=== PATIENT | male | born 1975 | race Caucasian/White ===

== ENCOUNTER 2024-02-18 15:31 | Inpatient (IN) | payer OTHER, SELFPAY ==
[2024-02-18 11:05] VITALS: BP 127/75
--- NOTE | 2024-02-18 11:45 | ED.GENMED ---
History of Present Illness
<Holly Ivy PA-C - Last Filed: 02/18/24 23:29>
General
Chief Complaint: Skin Problem
Source: patient
Exam Limitations: none
Time Seen by Provider: 02/18/24 11:28
Nursing documentation reviewed up to this point in time: agreed with
Travel History
Have you had any contact with someone who has COVID-19?: No
Do you have any symptoms of coronavirus? Fever > 100 degrees, chills, cough, shortness of breath, sore throat, loss of taste or smell, muscle aches, or headache?: No
History of Present Illness
History of Present Illness:
48-year-old male presents to the emergency department for evaluation of worsening redness and swelling of right forearm. Patient states that he was hiking this past weekend on Friday when he tripped and fell striking his right forearm on a rock.
This did occur in a fresh water stream. Patient did walk back to the car where he was able to clean laceration with hydrogen peroxide and closed wound with Band-Aid. When he woke up Friday morning he reports that his right arm was extremely
swollen, red, and warm. He reports significant pain in right arm extending from right wrist to just above right elbow. He also has noticed pus drainage from open wound.
He did speak with his primary care physician on the phone yesterday who prescribed a course of Keflex. He has only had 3 doses but given severity of symptoms came to emergency department for further evaluation.
Patient reports general fatigue but has not been sleeping well due to discomfort. Patient denies any true fever or chills. Patient denies any nausea, vomiting.
Patient unsure of last tetanus booster.
Review of Systems
<Holly Ivy PA-C - Last Filed: 02/18/24 23:29>
Review of Systems
Allergies reviewed?: Yes
All Other Systems: ROS reviewed and negative except as documented in HPI and ROS
Phy Exam
<Holly Ivy PA-C - Last Filed: 02/18/24 23:29>
Physical Exam
Physical Exam:
Vitals: Patient's vital signs are stable. Afebrile
General: Patient is well appearing, no acute distress
Skin: Significant redness and warmth extending from right wrist to just above right elbow
Head: Normocephalic, atraumatic
Eyes: Sclera nonicteric. EOMs intact. No nystagmus.
Throat: Protecting airway
Neck: Normal ROM, no cervical spine tenderness, no meningismus
Cardiac: Regular rate and rhythm, no murmurs.
Pulm: Normal respiratory effort, no wheezes, rales, rhonchi heard on exam.
Abdomen: Abdomen soft. No abdominal tenderness.
Extremities: Significant erythema, edema and warmth of right upper extremity extending from just above right elbow down to right wrist. Wound noted on right dorsal forearm draining yellow discharge with surrounding induration. No obvious red
streaking. No crepitus noted. No pain with right wrist or elbow range of motion. Good distal pulses with brisk capillary refill of right upper extremity, sensation fully intact of RUE.
Neuro: AAOx3. CN II-XII intact. No focal neurologic deficits.
Psychiatric: Normal affect.
Course
<Holly Ivy PA-C - Last Filed: 02/18/24 23:29>
Orders/Labs/Results
Orders:
Orders
02/18/24 11:43
Ibuprofen [Motrin] 400 mg PO NOW STA
Tetanus/Diphth/Acelpertussis [Adacel] 0.5 ml IM .ONCE ONE
02/18/24 12:12
Piperacillin/Tazo 3.375 Gram [Zosyn] 3.375 gram in 50 ml IV NOW
02/18/24 12:15
Upper Ext Right w Contrast CT [CT Upper Ext W/iv Cont Rt] Urgent
Comment:
Reason For Exam: right forearm cellulitis
02/18/24 12:16
Basic Metabolic Panel Urgent
Complete Blood Count/With Diff Urgent
Lactate Level [Lactic Acid] Urgent
Blood Culture Q30M
PAWAN Source: Blood/Venous
Specimen Description:
02/18/24 12:29
Blood Culture Q30M
PAWAN Source: Blood/Venous
Specimen Description:
Wound Culture [Wound/Abscess/Other Culture] Urgent
PAWAN Source: Arm
Specimen Description: Right
Date Specimen was Collected: 02/18/24
Time Specimen was Collected: 12:17
02/18/24 14:10
Vancomycin [Vancocin] 1,500 mg 0.9% Sodium Chloride [Nss] 20 ml 0.9% Sodium Chloride 250 ml [Nss] 250 ml IV NOW
02/18/24 15:24
Admit/Transfer Patient As Directed
Co-Sign Provider:
Level of Care: Inpatient admission
Assign to:: Medical/Surgical
Physician / Group: Hospitalist
Diagnosis: Cellulitis
Reason for Hospitalization: .
Expected length of stay greater than two midnights?: Yes
ELOS- Estimated Length of Stay in days: 3
I certify the patient meets the requirements for IP care: Yes
02/18/24 16:56
DX Deep Vein Thrombosis Video Routine
02/18/24 20:00
Heparin 5,000 units SC Q12
02/18/24 22:00
HydrOXYZINE [Atarax] 50 mg PO HS
Zolpidem Tartrate [Ambien] 10 mg PO HS
02/19/24 08:00
Amlodipine [Norvasc] 10 mg PO DAILY
Aspirin Low Dose EC [Aspir Low (Enteric Coated)] 81 mg PO DAILY
Metoprolol Xl [Toprol Xl] 50 mg PO DAILY
Rosuvastatin Calcium [Crestor] 40 mg PO DAILY
Abnormal Lab Results
02/18/24
12:16
WBC 12.8 H 10^3/uL
(4.8-10.8)
RBC 4.47 L 10^6/uL
(4.70-6.10)
MCV 95.5 H fL
(80.0-94.0)
MCH 32.9 H pg
(27.0-31.0)
Abs Immat Gran (auto) 0.1 H 10^3/uL
(0-0.05)
Absolute Neuts (auto) 10.0 H 10^3/uL
(1.4-6.5)
Absolute Monos (auto) 1.2 H 10^3/uL
(0.1-0.6)
Neutrophils % 78.4 H %
(42.2-75.2)
Lymphocytes % 10.1 L %
(20.5-51.1)
Monocytes % 9.4 H %
(1.7-9.3)
Glucose 127 H mg/dl
(70-99)
02/18/24 12:16
02/18/24 12:16
Vital Signs
Initial and Last Documented VS:
Initial Vital Signs
Temp Pulse Resp BP Pulse Ox
97.8 F 94 20 127/75 99
02/18/24 11:05 02/18/24 11:05 02/18/24 11:05 02/18/24 11:05 02/18/24 11:05
Last Documented Vital Signs
Temp Pulse Resp BP Pulse Ox
98.3 F 75 18 123/85 97
02/18/24 16:38 02/18/24 16:38 02/18/24 16:38 02/18/24 16:38 02/18/24 16:38
Terelt;Rodolfo Singh DO - Last Filed: 02/18/24 14:32>
Orders/Labs/Results
Orders:
Orders
02/18/24 11:43
Ibuprofen [Motrin] 400 mg PO NOW STA
Tetanus/Diphth/Acelpertussis [Adacel] 0.5 ml IM .ONCE ONE
02/18/24 12:12
Piperacillin/Tazo 3.375 Gram [Zosyn] 3.375 gram in 50 ml IV NOW
02/18/24 12:15
Upper Ext Right w Contrast CT [CT Upper Ext W/iv Cont Rt] Urgent
Comment:
Reason For Exam: right forearm cellulitis
02/18/24 12:16
Basic Metabolic Panel Urgent
Complete Blood Count/With Diff Urgent
Lactate Level [Lactic Acid] Urgent
Blood Culture Q30M
PAWAN Source: Blood/Venous
Specimen Description:
02/18/24 12:29
Blood Culture Q30M
PAWAN Source: Blood/Venous
Specimen Description:
Wound Culture [Wound/Abscess/Other Culture] Urgent
PAWAN Source: Arm
Specimen Description: Right
Date Specimen was Collected: 02/18/24
Time Specimen was Collected: 12:17
02/18/24 14:10
Vancomycin [Vancocin] 1,500 mg 0.9% Sodium Chloride [Nss] 20 ml 0.9% Sodium Chloride 250 ml [Nss] 250 ml IV NOW
02/18/24 15:24
Admit/Transfer Patient As Directed
Co-Sign Provider:
Level of Care: Inpatient admission
Assign to:: Medical/Surgical
Physician / Group: Hospitalist
Diagnosis: Cellulitis
Reason for Hospitalization: .
Expected length of stay greater than two midnights?: Yes
ELOS- Estimated Length of Stay in days: 3
I certify the patient meets the requirements for IP care: Yes
02/18/24 16:56
DX Deep Vein Thrombosis Video Routine
02/18/24 20:00
Heparin 5,000 units SC Q12
02/18/24 22:00
HydrOXYZINE [Atarax] 50 mg PO HS
Zolpidem Tartrate [Ambien] 10 mg PO HS
02/19/24 08:00
Amlodipine [Norvasc] 10 mg PO DAILY
Aspirin Low Dose EC [Aspir Low (Enteric Coated)] 81 mg PO DAILY
Metoprolol Xl [Toprol Xl] 50 mg PO DAILY
Rosuvastatin Calcium [Crestor] 40 mg PO DAILY
Abnormal Lab Results
02/18/24
12:16
WBC 12.8 H 10^3/uL
(4.8-10.8)
RBC 4.47 L 10^6/uL
(4.70-6.10)
MCV 95.5 H fL
(80.0-94.0)
MCH 32.9 H pg
(27.0-31.0)
Abs Immat Gran (auto) 0.1 H 10^3/uL
(0-0.05)
Absolute Neuts (auto) 10.0 H 10^3/uL
(1.4-6.5)
Absolute Monos (auto) 1.2 H 10^3/uL
(0.1-0.6)
Neutrophils % 78.4 H %
(42.2-75.2)
Lymphocytes % 10.1 L %
(20.5-51.1)
Monocytes % 9.4 H %
(1.7-9.3)
Glucose 127 H mg/dl
(70-99)
02/18/24 12:16
02/18/24 12:16
Vital Signs
Initial and Last Documented VS:
Initial Vital Signs
Temp Pulse Resp BP Pulse Ox
97.8 F 94 20 127/75 99
02/18/24 11:05 02/18/24 11:05 02/18/24 11:05 02/18/24 11:05 02/18/24 11:05
Last Documented Vital Signs
Temp Pulse Resp BP Pulse Ox
98.3 F 75 18 123/85 97
02/18/24 16:38 02/18/24 16:38 02/18/24 16:38 02/18/24 16:38 02/18/24 16:38
<Holly Ivy PA-C - Last Filed: 02/18/24 23:29>
MDM/Problems Addressed
Differential Diagnosis Includes:
Not limited to: Cellulitis, abscess, necrotizing fasciitis, septic arthritis, tenosynovitis
MDM/Problems Addressed:
48 year old male with hx as documented presenting for evaluation of suspected cellulitis failing outpatient management. Started on keflex yesterday by PCP with no improvement. No fever or chills. Vitals stable. Exam as above. Cellulitis of right
forearm with erythema extending from elbow to near wrist. There is a wound on proximal dorsal forearm draining yellow pus with surrounding induration. No crepitus. Given history of laceration - high concern for freshwater infection. Will check labs,
lactic acid. Blood cultures and wound cultures sent. No crepitus noted but will check CT upper extremity. Admit to hospital for IV abx. Started vanc / zosyn. Discussed with hospitalist.
CT shows findings consistent with cellulitis of right upper extremity with few small metallic foreign bodies noted. Did discuss with general surgeon to make aware. They will consult but do not anticipate surgical debridement given location and size
of foreign bodies.
Chronic conditions affecting care:
N/A
Acute Exacerbation and/or Progression of Chronic Illness:
N/A
<Holly Ivy PA-C - Last Filed: 02/18/24 23:29>
*Radiology
Radiology exam reviewed: preliminary read by ED provider and radiology read reviewed
*Pulse Oximetry
Patient hypoxic: no
*EKG
Interpreted by ED Provider?: NA
*Livestock Yard Attendant Interpretation
Rate: Livestock Yard Attendant- N/A
*Critical Care Note
Total Time (30-74mins, 75-104mins- exclusive of procedures): Not Applicable
<Holly Ivy PA-C - Last Filed: 02/18/24 23:29>
Patient Management
Discussion with other providers: Hospitalist and Personnel Security Specialist (Dr. Pantoja - General surgery)
ED Attending Note
<Holly Ivy PA-C - Last Filed: 02/18/24 23:29>
-
Portions of this chart may have been created with voice recognition software.� Occasional wrong word or��sound alike� substitutions may have occurred due to the inherent limitations of voice recognition software.
<Rodolfo Singh DO - Last Filed: 02/18/24 14:32>
ED Attending Note
Patient seen and examined by attending physician: Yes
I performed the substantive portion of visit, reviewed & personally made and approve the management plan that is documented in note by myself or RISHABH.: Yes
ED Attending Note:
48-year-old male presents with right arm swelling and redness. Patient fell on a rock on Friday in fresh water. Family doctor started him on Keflex. Patient arrives with increased swelling and redness. Exam: Markedly edematous and red right
upper extremity with extension redness past where he marked himself. There is redness proximal toward the armpit but no obvious linear streaking. No crepitus palpated but it is boggy near the elbow. There is a wound noted to the posterior
proximal forearm. He has normal distal cap refill. Assessment and plan: Concern for freshwater infection including necrotizing fasciitis. No crepitus but check CT. IV antibiotics with Vanco and Zosyn.
Discharge Plan
Departure
Patient Disposition: Admit
Date of Disposition: 02/18/24
Time of Disposition: 14:19
Presentation/result/management discussed w/ accepting MD/DO: Hospitalist
Discharge Problem:
Cellulitis of right arm
Interventions
Interventions:
*Risk Screen - Suicide Last Done: 02/18/24 11:43
*General Assessment Last Done: 02/18/24 11:43
*Neglect/Abuse Screening Last Done: 02/18/24 11:43
ED- Fall Risk Assessment Last Done: 02/18/24 11:40
*ED COVID-19 Vaccine History Last Done: 02/18/24 11:05
*Nursing Disposition Last Done: 02/18/24 16:43
ED-Skin Assessment Last Done: 02/18/24 11:38
Discharge Date and Time
Discharge Date/Time: 02/18/24 16:44
[2024-02-18] MEDS: ADACEL 0.5 ML IM (12:03)
[2024-02-18] MEDS: MOTRIN 400 MG PO (12:04)
[2024-02-18 12:26] LABS: % Basophils 0.4 % (0-2); % Eosinophils 1.3 % (0-6); % Immature Granulocytes 0.4 % (0-0.5); % Lymphocytes 10.1 % (20.5-51.1); % Monocytes 9.4 % (1.7-9.3); % Neutrophils 78.4 % (42.2-75.2); Absolute Basophils 0.1 10^3/uL (0-0.2); Absolute Eosinophils 0.2 10^3/uL (0-0.7); Absolute Immature Granulocytes 0.1 10^3/uL (0-0.05); Absolute Lymphocytes 1.3 10^3/uL (1.2-3.4); Absolute Monocytes 1.2 10^3/uL (0.1-0.6); Hematocrit 42.7 % (39.0-52.0); Hemoglobin 14.7 g/dL (13.0-18.0); Mean Corp Hgb Conc. 34.4 g/dL (33.0-37.0); Mean Corpuscular Hgb 32.9 pg (27.0-31.0); Mean Corpuscular Volume 95.5 fL (80.0-94.0); Mean Platelet Volume 9.7 fL (7.4-10.4); Nucleated Red Blood Cells % 0 % (-); Platelet Count 194 10^3/uL (130-400); Red Blood Cell Count 4.47 10^6/uL (4.70-6.10); Red Cell Dist. Width 12.4 % (11.5-14.5); White Blood Cell Count 12.8 10^3/uL (4.8-10.8)
[2024-02-18] MEDS: ZOSYN 50 IV (12:29)
[2024-02-18 13:23] LABS: Blood Urea Nitrogen 15 mg/dl (9-20); Calcium 9.8 mg/dl (8.4-10.2); Carbon Dioxide 24 mmol/L (22-30); Chloride 101 mmol/L (98-107); Estimated Creatinine Clearance 92 ml/min; Glucose 127 mg/dl (70-99); Sodium 138 mmol/L (135-145); eGFR > 60.00
[2024-02-18] MEDS: VANCOCIN 300 MG IV (14:34)
[2024-02-18] MEDS: VANCOCIN 300 ML IV (14:34)
[2024-02-18 15:05] VITALS: BP 118/71
--- NOTE | 2024-02-18 15:24 | HPS.HSE ---
Family Physician
-
Family Physician: John Souza
Chief Complaint
-
Right arm pain and swelling
History of Present Illness
48 years old male came from home. Patient went hiking with his son's on Wednesday 02/14 when he fell and lacerated his right arm. He cleaned the wound. next day he is felt his arm was swollen red and warm. He called his a primary care physician and
was given prescription of oral cephalexin. He started taking it but felt his arm was not improving and started draining yellowish discharge. He did not have fever or chills. He had leukocytosis on admission. Scan of the right upper extremity is
consistent with cellulitis.
Medical History
Past Medical History
Past Medical History: Reports Other (Hypertension, hyperlipidemia)
Past Surgical History: Reports Other (No recent major surgery)
Social History
Tobacco: Non-smoker
Alcohol: Occasional
Drug: None
Personal:
Living: With Family
Employment: Employed
Family History
Family History: Not pertinent
Allergies / Home Medications
Allergies reflects when Allergies were last updated in [facility].
Home Medications with original date entered in [facility]
Allergy/Medication List:
Allergies
Allergy/AdvReac Type Severity Reaction Status Date / Time
No Known Allergies Allergy Unverified 02/18/24 11:06
Home Medications
ibuprofen 200 mg tablet 600 mg PO DAILYPRN PRN mild pain 12/07/14
Super Beets 2 tab PO QPM 02/18/24
amlodipine 10 mg tablet 10 mg PO DAILY 02/18/24
aspirin 81 mg tablet,delayed release (Nitesh Low Dose Aspirin) 81 mg PO DAILY 02/18/24
cephalexin 500 mg capsule 500 mg PO QID 02/18/24
coenzyme Q10 100 mg capsule (CoQ-10) 200 mg PO DAILY 02/18/24
dupilumab 300 mg/2 mL subcutaneous pen injector ([employer]) 300 mg SC Q2W 02/18/24
ezetimibe 10 mg tablet 10 mg PO DAILY 02/18/24
flaxseed oil 1,000 mg capsule 1,000 mg PO DAILY@1200 02/18/24
garlic 2,000 mg capsule 2,000 mg PO DAILY@1200 02/18/24
hydroxyzine HCl 50 mg tablet 50 mg PO HS 02/18/24
inulin 2 gram chewable tablet (Fiber Gummies) 4 g PO QPM 02/18/24
lisinopril 5 mg tablet 5 mg PO DAILY 02/18/24
metoprolol succinate 50 mg tablet,extended release 24 hr 50 mg PO DAILY 02/18/24
omega 4-ouf-bpe-fish oil 1,200 mg (144 mg-216 mg) capsule (Fish Oil) 1 cap PO BID 02/18/24
omeprazole magnesium 20 mg tablet,delayed release (Prilosec OTC) 20 mg PO DAILY@1200 02/18/24
rosuvastatin 40 mg tablet 40 mg PO DAILY 02/18/24
zolpidem 10 mg tablet 10 mg PO HS 02/18/24
Review of Systems
-
History Source: Patient
A 12 point ROS was completed and negative except as noted: Yes
Constitutional: Denies Fever or Chills
EENT: Denies Sore Throat
Respiratory: Denies Cough
Cardiac: Denies Chest Pain
Abdomen/GI: Denies Abdominal Pain
: Denies Dysuria
Musculoskeletal: Reports Joint Pain (Pain with the swelling and tenderness of right forearm)
Skin: Denies Itching
Neurological: Denies Dizzy or Numbness
Endocrine: Denies Temp Intolerance
Hematologic/Lymphatic: Denies Bruising
Psych: Denies Panic Disorder
Physical Exam
Vital Signs
Vital Signs
Temp Pulse Resp BP Pulse Ox
97.8 F 76 18 118/71 100
02/18/24 11:05 02/18/24 15:05 02/18/24 15:05 02/18/24 15:05 02/18/24 15:05
Physical Exam
General: Well Nourished, No Apparent Distress and Comfortable
HEENT: Moist mucous membranes and Atraumatic
Respiratory: Clear
Cardiac: S1/S2
GI: Non Tender
Genito-urinary: No costovertebral tender
Musculoskeletal: Edema, Right Upper Extremity (With erythema and swelling/tenderness in right forearm)
Skin: Warm; No Jaundice
Neuro: AO x 3; No Slurred Speech or Tremors
Psych: Calm and Intact Judgment/Insight
Laboratory Results
-
02/18/24 12:16
02/18/24 12:16
Laboratory Results
Lactic Acid 1.0 mmol/L (0.7-2.0) 02/18/24 12:16
Total Bilirubin Cancelled 02/18/24 12:16
AST Cancelled 02/18/24 12:16
ALT Cancelled 02/18/24 12:16
Alkaline Phosphatase Cancelled 02/18/24 12:16
Impression/Plan
-
48 years old male presented with cellulitis of right forearm after laceration
# Cellulitis of right forearm
The forearm is swollen, tender, red, with draining wound with yellowish discharge
Admit the patient to the house
He failed outpatient treatment with oral antibiotic
The patient on IV antibiotic
Blood culture X2
Tetanus booster
Continue with wound care. Elevate the arm. Keep n.p.o. until surgery evaluates
Appreciate surgery input
# Primary hypertension
No headache, no chest pain. Continue home medications and monitor
#Hyperlipidemia
#Foreign bodies in right forearm, measuring up to 5 mm in diameter.
Small in size. Could be related to his work in [employer]
# DVT prophylaxis
Total time spent to see the patient, examine the patient on the floor, review data and lab results, discuss treatment plan with patient, ER doctor, surgery, nursing staff around 75 minutes
[2024-02-18 16:38] VITALS: BP 123/85; BMI 30.5
--- NOTE | 2024-02-18 17:40 | PTCARENOTE ---
Received Pt from ED. Walked from stretcher to bed. AAOx3 able to make needs known. Oriented to room and use of call chance. VSS. Call chance within reach.
--- NOTE | 2024-02-18 19:12 | CON.GS ---
Consultation
-
Requesting Provider: Hugo
Performing Provider: Kit
Reason for Consultation: RUE soft tissue infection
Medical History
-
Chief Complaint: RUE redness/swelling/pain
History of Present Illness:
48M fell while hiking 02/14 and lacerated right forearm. [place]. Since then it became increasingly tender, red and swollen. He denies f/c/n/v. His PCP rx'ed keflex, this was not effective. He developed purulent
drainage from the small wound.
Past Medical History
Past Medical History: HTN and Hypercholesterolemia
Past Surgical History: Reviewed & Noncontributory
Social History
Tobacco: Non-Smoker
Alcohol: Occasional
Drug: None
Personal:
Living: With Family
Employment: Employed
Family History
Family History: Reviewed & Noncontributory
Allergies / Home Medications
Allergy/AdvReac Type Severity Reaction Status Date / Time
No Known Allergies Allergy Unverified 02/18/24 11:06
�Medication �Instructions �Recorded �Confirmed �Type
ibuprofen 200 mg tablet 600 mg PO DAILYPRN PRN mild pain 12/07/14 02/18/24 History
Super Beets 2 tab PO QPM 02/18/24 02/18/24 History
amlodipine 10 mg tablet 10 mg PO DAILY 02/18/24 02/18/24 History
aspirin 81 mg tablet,delayed 81 mg PO DAILY 02/18/24 02/18/24 History
release (Nitesh Low Dose Aspirin)
cephalexin 500 mg capsule 500 mg PO QID 02/18/24 02/18/24 History
coenzyme Q10 100 mg capsule 200 mg PO DAILY 02/18/24 02/18/24 History
(CoQ-10)
dupilumab 300 mg/2 mL subcutaneous 300 mg SC Q2W 02/18/24 02/18/24 History
pen injector (Dupixent)
ezetimibe 10 mg tablet 10 mg PO DAILY 02/18/24 02/18/24 History
flaxseed oil 1,000 mg capsule 1,000 mg PO DAILY@119902/18/24 02/18/24 History
garlic 2,000 mg capsule 2,000 mg PO DAILY@119902/18/24 02/18/24 History
hydroxyzine HCl 50 mg tablet 50 mg PO 02/18/24 02/18/24 History
inulin 2 gram chewable tablet 4 g PO QPM 02/18/24 02/18/24 History
(Fiber Gummies)
lisinopril 5 mg tablet 5 mg PO DAILY 02/18/24 02/18/24 History
metoprolol succinate 50 mg 50 mg PO DAILY 02/18/24 02/18/24 History
tablet,extended release 24 hr
omega 6-lsy-wyr-fish oil 1,200 mg 1 cap PO BID 02/18/24 02/18/24 History
(144 mg-216 mg) capsule (Fish Oil)
omeprazole magnesium 20 mg 20 mg PO DAILY@119902/18/24 02/18/24 History
tablet,delayed release (Prilosec
OTC)
rosuvastatin 40 mg tablet 40 mg PO DAILY 02/18/24 02/18/24 History
zolpidem 10 mg tablet 10 mg PO 02/18/24 02/18/24 History
Review of Systems
-
A 10 point review of systems was completed, and was negative except as per HPI.
Physical Exam
Vital Signs
Temp Pulse Resp BP Pulse Ox
98.3 F 75 18 123/85 97
02/18/24 16:38 02/18/24 16:38 02/18/24 16:38 02/18/24 16:38 02/18/24 16:38
02/17/24 02/18/24 02/19/24
06:59 06:59 06:59
Actual Weight 104.689 kg
Body Mass Index (BMI) 30.5
Lab Results
02/18/24 12:16
02/18/24 12:16
WBC 12.8 10^3/uL (4.8-10.8) H 02/18/24 12:16
Hgb 14.7 g/dL (13.0-18.0) 02/18/24 12:16
Hct 42.7 % (39.0-52.0) 02/18/24 12:16
Plt Count 194 10^3/uL (130-400) 02/18/24 12:16
Abs Immat Gran (auto) 0.1 10^3/uL (0-0.05) H 02/18/24 12:16
Neutrophils % 78.4 % (42.2-75.2) H 02/18/24 12:16
Physical Exam
General: Well Developed, Well Nourished and No Apparent Distress
Skin: Other (RUE forearm with erythema, edema, no fluctuance, small expressible purulent drainage from small lateral wound, erythema extends beyond drawn borders)
Neuro: AO x 3
Psych: Calm
Data Reviewed
-
CT Scan: Image Personally Visualized and interpreted, Discussed with Physician and Discussed with Patient
Labs: Labs Reviewed by me and Discussed with Physician
Assessment / Plan
-
48M with soft tissue infection of RUE
AFVSS, no fluctuance, some expressible purulence, wound got wet in a river
Mild leukocytosis, mild hyperglycemia, no hyponatremia, Cr WNL, Plts WNL
CT with diffuse edema, cm and sub-cm subq radiopaque foreign bodies, gravel?, no fluid collections
Plan:
Cont IV abx
Consider ID consult
OK for diet
No plan for surgical intervention
Typically exploration of upper extremity for foreign bodies carries more risk than benefit, may be indicated if infection unable to be cleared by abx
GS will s/o, pls call with ?s
[2024-02-18] MEDS: ULTRAM 50 MG PO (19:34)
--- NOTE | 2024-02-18 19:46 | PHA.VAN.IN ---
Assessment
- Assessment
Renal Function: Appears elevated from baseline
Concomitant Antimicrobials: CEFEPIME
- Previous Dosing Experience
Previous Regimen: NONE
AUC Dosing Plan
- Dosing Variables
Dosing Weight (kg): 104.7
Dosing CrCl (ml/min): 100
Vd coefficient (L/kg): 0.6
- Empiric Dosing
Initial / Loading Dose: 1500MG
Maintenance Regimen: 1250MG IV Q12H
Estimated AUC (mcg*h/mL): 485
Estimated Peak (mcg*h/mL): 30.6
Estimated Trough (mcg/ml): 12.2
Estimated Half Life (H): 7.9
Pharmacokinetics Vancomycin I
- -
Patient Age: 48
Patient Sex: Male
Vancomycin Day #: 1
Indication: Skin And Soft Tissue (CELLULITIS OF FOREARM)
Requesting Provider: JEFF
Height / Weight:
Height 6 ft 1 in
Actual Weight 104.689 kg
- Vital Signs / Lab Results
Temp Pulse Resp BP Pulse Ox
98.3 F 75 18 123/85 97
02/18/24 16:38 02/18/24 16:38 02/18/24 16:38 02/18/24 16:38 02/18/24 16:38
Lab Results - Hematology
02/18/24
12:16
WBC 12.8 H
Lab Results - Chemistry
02/18/24
12:16
BUN 15
Creatinine 1.1
Estimated Creat Clear 92
Albumin Cancelled
02/18/24
12:16
Lactic Acid 1.0
Microbiology Results
02/18/24 12:29 Gram Stain - Preliminary
Arm - Right
[2024-02-18] MEDS: MAXIPIME 2000 MG IV (20:59)
[2024-02-18] MEDS: ATARAX 50 MG PO (21:00)
[2024-02-18] MEDS: AMBIEN 5 MG PO (21:01)
[2024-02-18] MEDS: HEPARIN 5000 UNITS SC (21:02)
[2024-02-18] MEDS: STERILE WATER FOR INJECTION 10 ML IV (21:06)
[2024-02-18 23:23] VITALS: BP 130/72
[2024-02-18] MEDS: TYLENOL 1000 MG PO (23:35)
[2024-02-19] MEDS: VANCOCIN 275 MG IV (05:35)
[2024-02-19 07:00] VITALS: BP 128/74
[2024-02-19 07:12] LABS: Hematocrit 41.4 % (39.0-52.0); Hemoglobin 14.6 g/dL (13.0-18.0); Mean Corp Hgb Conc. 35.3 g/dL (33.0-37.0); Mean Corpuscular Hgb 33.1 pg (27.0-31.0); Mean Corpuscular Volume 93.9 fL (80.0-94.0); Mean Platelet Volume 9.9 fL (7.4-10.4); Platelet Count 209 10^3/uL (130-400); Red Blood Cell Count 4.41 10^6/uL (4.70-6.10); Red Cell Dist. Width 12.4 % (11.5-14.5); White Blood Cell Count 10.1 10^3/uL (4.8-10.8)
[2024-02-19 07:55] LABS: Blood Urea Nitrogen 14 mg/dl (9-20); Calcium 9.1 mg/dl (8.4-10.2); Carbon Dioxide 24 mmol/L (22-30); Chloride 101 mmol/L (98-107); Estimated Creatinine Clearance 114 ml/min; Glucose 119 mg/dl (70-99); Sodium 136 mmol/L (135-145); eGFR > 60.00
[2024-02-19] MEDS: TOPROL XL 50 MG PO (08:13)
[2024-02-19] MEDS: ASPIR LOW (ENTERIC COATED) 81 MG PO (08:13)
[2024-02-19] MEDS: ULTRAM 50 MG PO ×3 (08:13→21:28)
[2024-02-19] MEDS: CRESTOR 40 MG PO (08:13)
[2024-02-19] MEDS: STERILE WATER FOR INJECTION 10 ML IV ×2 (08:14→21:25)
[2024-02-19] MEDS: NORVASC 10 MG PO (08:14)
[2024-02-19] MEDS: HEPARIN 5000 UNITS SC ×2 (08:14→21:22)
[2024-02-19] MEDS: MAXIPIME 2000 MG IV ×2 (08:18→21:25)
--- NOTE | 2024-02-19 10:09 | PHA.VAN.FU ---
Vancomycin Assessment / Plan
- Assessment
Renal Function: Stable
WBC's are: WNL
In the past 24 hrs, patient has been: Febrile (Tmax 101.9 F - oral - 02/17 23:23)
Concomitant Antimicrobials: cefepime
- Dosing Plan
Adjust Regimen to: Vanc 1500mg Q12H starting at 1800
New Regimen Predicts: AUC (447), Peak (29.6), Trough (10.5)
- Monitoring Plan
No level(s) ordered at this time: consider levels in next few days
- Follow Up
Pharmacy will continue to follow.
Vancomycin Follow UP
- -
Patient Age: 48
Patient Sex: Male
Vancomycin Day #: 2
Indication: Skin And Soft Tissue
Requesting Provider: Dr. Arias
Pertinent Antimicrobial Allergies:
NKDA
Height / Weight:
Height 6 ft 1 in
Actual Weight 104.689 kg
Pertinent Past Medical History: BMI ~30.5
- Vital Signs / Lab Results
Temp Pulse Resp BP Pulse Ox
99.0 F 92 16 130/72 96
02/19/24 07:00 02/19/24 08:13 02/19/24 07:00 02/19/24 08:13 02/19/24 07:00
Lab Results - Hematology
02/18/24 02/19/24
12:16 06:56
WBC 12.8 H 10.1
Lab Results - Chemistry
02/18/24 02/19/24
12:16 06:56
BUN 15 14
Creatinine 1.1 1.0
Estimated Creat Clear 92 114
Albumin Cancelled
02/18/24
12:16
Lactic Acid 1.0
Microbiology Results
02/18/24 12:29 Gram Stain - Preliminary
Arm - Right
--- NOTE | 2024-02-19 12:16 | W.PN.HOSP.TC ---
Today's Communication/Plan
-
.
Assessment / Plan
Assessment / Plan
Physical Exam
General: Well Nourished, No Apparent Distress and Comfortable
HEENT: Moist mucous membranes and Atraumatic
Respiratory: Clear
Cardiac: S1/S2
GI: Non Tender
Genito-urinary: No costovertebral tender
Musculoskeletal: Edema, Right Upper Extremity (less erythema and swelling/less tenderness in right forearm- small wound draining yellow fluid )
Skin: Warm; No Jaundice
Neuro: AO x 3; No Slurred Speech or Tremors
Psych: Calm and Intact Judgment/Insight
48 years old male presented with cellulitis of right forearm after laceration
# Cellulitis of right forearm. Diffuse no fluid collection
Sepsis POA with tachycardia, fever, leukocytosis and
Overnight, less swelling and erythema. Less painful. Continues to have small wound with yellow discharge
Continue on IV antibiotics. Leukocytosis resolved
Blood culture X2
Tetanus booster
Continue with wound care. Elevate the arm.
Okay to shower
Pain control with Tylenol and tramadol for severe pain
Appreciate surgery and ID input
# Primary insomnia, continue home dose of Ambien and hydroxyzine
# Primary hypertension
No headache, no chest pain. Continue home medications and monitor
#Hyperlipidemia
#Foreign bodies in right forearm, measuring up to 5 mm in diameter.
Small in size. Could be related to his work in [place]
# DVT prophylaxis
Total time spent to see the patient, examine the patient on the floor, review data and lab results, discuss treatment plan with patient, surgery, nursing staff around 55 minutes
Anticipated Discharge: > 48 hours
Subjective/Interval History
-
Date of Service: February 19, 2024
No chest pain
No sob
Less pain and swelling in right forearm. No fever this morning
Objective Data
-
Labs:
Laboratory Results
02/19/24
06:56
WBC 10.1
Hgb 14.6
Hct 41.4
Plt Count 209
Sodium 136
Potassium 4.0
Chloride 101
Carbon Dioxide 24
BUN 14
Creatinine 1.0
Glucose 119 H
Calcium 9.1
Vital Signs:
Vital Signs
Temp Pulse Resp BP Pulse Ox
99.0 F 92 16 130/72 96
02/19/24 07:00 02/19/24 08:13 02/19/24 07:00 02/19/24 08:13 02/19/24 07:00
I&O
02/18/24 02/19/24 02/20/24
06:59 06:59 06:59
Intake Total 240 / 240
Balance 240 / 240
--- NOTE | 2024-02-19 13:09 | CM ---
Reviewed chart, met with patient to obtain information for assessment. Patient stated that he lives alone in a single, two story home with one step to enter. 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 He is independent with his
ADLs, personal care, dressing and bathing. He ambulates without device. He denied any DME at home. 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
Patient drives and can get to his appointments.
He has a prescription plan and uses, [facility] pharmacy in [place] [address] for all of his medications.
His PCP is, Dr. Souza.
Patient stated that physically he is at baseline and he feels he can return home when he is medically stable.
Plan: Case management will continue to follow and assist with discharge planning. Home when medically cleared.
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
[2024-02-19 15:00] VITALS: BP 123/76
[2024-02-19] MEDS: LIDOCAINE 4% PATCH 1 PATCH TOPICAL (15:10)
[2024-02-19] MEDS: ATARAX 50 MG PO (21:26)
[2024-02-19] MEDS: AMBIEN 5 MG PO (21:26)
[2024-02-19 23:30] VITALS: BP 120/74
[2024-02-20 07:00] VITALS: BP 118/65
[2024-02-20] MEDS: LIDOCAINE 4% PATCH TOPICAL ×2 (08:00→08:07)
[2024-02-20] MEDS: TOPROL XL 50 MG PO (08:07)
[2024-02-20] MEDS: CRESTOR 40 MG PO (08:07)
[2024-02-20] MEDS: MAXIPIME 2000 MG IV ×2 (08:07→20:11)
[2024-02-20] MEDS: NORVASC 10 MG PO (08:07)
[2024-02-20] MEDS: ASPIR LOW (ENTERIC COATED) 81 MG PO (08:07)
[2024-02-20] MEDS: HEPARIN 5000 UNITS SC ×2 (08:08→20:11)
[2024-02-20] MEDS: STERILE WATER FOR INJECTION 10 ML IV ×2 (08:08→20:11)
[2024-02-20] MEDS: ULTRAM 50 MG PO ×2 (08:17→20:25)
--- NOTE | 2024-02-20 09:20 | W.PN.HOSP.TC ---
Today's Communication/Plan
-
Will keep on IV Abx , might consider dc over the weekend
Assessment / Plan
Assessment / Plan
Physical Exam
General: Well Nourished, No Apparent Distress and Comfortable
HEENT: Moist mucous membranes and Atraumatic
Respiratory: Clear
Cardiac: S1/S2
GI: Non Tender
Genito-urinary: No costovertebral tender
Musculoskeletal: Edema, Right Upper Extremity (less erythema and swelling/less tenderness in right forearm- small wound draining yellow fluid )
Skin: Warm; No Jaundice
Neuro: AO x 3; No Slurred Speech or Tremors
Psych: Calm and Intact Judgment/Insight
48 years old male presented with cellulitis of right forearm after laceration
# Cellulitis of right forearm. Diffuse no fluid collection
Sepsis POA with tachycardia, fever, leukocytosis and
Good clinical improvement. Less swelling and erythema. Less painful. Continues to have small wound with yellow discharge
Continue on IV antibiotics. Leukocytosis resolved
Blood culture X2 no growth. Wound culture: Aeromonas Veronii. Vancomycin was stopped.
Tetanus booster given
Continue with wound care/ dressing. Elevate the arm.
Okay to shower
Pain control with Tylenol and tramadol for severe pain
Appreciate surgery and ID input
# Acute on chronic back pain
Hx of fall >10 years. C/w Lidocaine patch, heating pad.
# Primary insomnia, continue home dose of Ambien and hydroxyzine
# Primary hypertension
No headache, no chest pain. Continue home medications and monitor
#Hyperlipidemia
#Foreign bodies in right forearm, measuring up to 5 mm in diameter.
Small in size. Could be related to his work in [place]
# DVT prophylaxis
Total time spent to see the patient, examine the patient on the floor, review data and lab results, discuss treatment plan with patient, nursing staff around 55 minutes
Anticipated Discharge: 24 - 48 hours
Subjective/Interval History
-
Date of Service: February 20, 2024
Less pain, swelling in right arm
Objective Data
-
Vital Signs:
Vital Signs
Temp Pulse Resp BP Pulse Ox
98.4 F 64 16 118/65 96
02/20/24 07:00 02/20/24 07:00 02/20/24 07:00 02/20/24 07:00 02/20/24 07:00
I&O
02/19/24 02/20/24 02/21/24
06:59 06:59 06:59
Intake Total 240 / 240 1320 / 1320
Balance 240 / 240 1320 / 1320
--- NOTE | 2024-02-20 11:46 | W.PN.ID1 ---
Date of Service
Date of Service: February 20, 2024
Today's Communication
Continue abx. Transition to oral cipro x10d
Assessment / Plan
Right arm cellulitis following laceration on a rock with fresh water exposure
Leukocytosis; improved
HTN
Dyslipidemia
Hemochromatosis
Recommendations:
Wound culture has growth of Aeromonas (as would be expected with a fresh water exposure).
Narrow to cipro 500 mg PO BID x 10 days.
Continue with upper extremity elevation.
Chief Complaint
-: Cellulitis
Subjective / Review of Systems
Review of Systems: No Fever and No Chills
Vital Signs / Physical Exam
Vital Signs
Vital Signs
Temp Pulse Resp BP Pulse Ox
98.4 F 64 16 118/65 96
02/20/24 07:00 02/20/24 07:00 02/20/24 07:00 02/20/24 07:00 02/20/24 07:00
Physical Exam
Constitutional: No Acute Distress, Comfortable and Non-toxic
Eyes: No Conjunctival Hemorrhage and Sclera Anicteric
Pulmonary: Non Labored
Extremities: Edema (RUE; improved.), Erythema (RUE; decreased) and Other (no RUE tenderenss.)
Skin: Warm and Dry; Negative Rash or Jaundice
Neurological: Awake, Alert and Oriented
Psychological: Calm
Objective Data
Lab Data
Lab Results
02/19/24 06:56
02/19/24 06:56
Estimated Creat Clear 114 ml/min 02/19/24 06:56
Lactic Acid 1.0 mmol/L (0.7-2.0) 02/18/24 12:16
Total Bilirubin Cancelled 02/18/24 12:16
AST Cancelled 02/18/24 12:16
ALT Cancelled 02/18/24 12:16
Alkaline Phosphatase Cancelled 02/18/24 12:16
Most recent labs reviewed.
Micro Results:
02/18/24 12:29 Wound Culture - Final
Arm - Right Aeromonas veronii
Gram Stain - Final
02/18/24 12:29 Blood Culture - Preliminary
Blood/Venous No Growth in 24 hours- Final report to follow
02/18/24 12:16 Blood Culture - Preliminary
Blood/Venous No Growth in 24 hours- Final report to follow
Imaging:
02/18/2024 CT right upper extremity: Pronounced soft tissue edema on the ulnar side of the forearm, consistent with cellulitis. No subcutaneous abscess formation is appreciated.
Three metallic foreign bodies are seen within the soft tissues of the medial forearm at the level of the proximal third of the right forearm, measuring up to 5 mm in diameter.
Care Review
Plan reviewed with: Physician (Hospitalist)
[2024-02-20] MEDS: CIPRO 500 MG PO ×2 (12:27→20:12)
[2024-02-20 15:00] VITALS: BP 129/80
[2024-02-20] MEDS: AMBIEN 5 MG PO (21:32)
[2024-02-20] MEDS: ATARAX 50 MG PO (21:32)
[2024-02-20 23:11] VITALS: BP 120/73
[2024-02-21 07:30] VITALS: BP 136/86
[2024-02-21] MEDS: CRESTOR 40 MG PO (08:01)
[2024-02-21] MEDS: CIPRO 500 MG PO (08:01)
[2024-02-21] MEDS: ASPIR LOW (ENTERIC COATED) 81 MG PO (08:01)
[2024-02-21] MEDS: NORVASC 10 MG PO (08:01)
[2024-02-21] MEDS: TOPROL XL 50 MG PO (08:02)
[2024-02-21] MEDS: HEPARIN SC (08:02)
[2024-02-21] MEDS: LIDOCAINE 4% PATCH TOPICAL (08:03)
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
== END 2024-02-21 11:02 | disposition home or self-care (01) | DRG 603 ==
LOC: 3 WEST ACU 15:31
PROVIDERS: Internal Medicine Cardiovascular Disease; Physician Assistant; ADMITTING PHYSICIAN Internal Medicine; CONSULT PHYSICIAN Surgery; EMERGENCY PHYSICIAN Emergency Medicine; FAMILY PHYSICIAN Family Medicine; OTHER PHYSICIAN Internal Medicine Infectious Disease
PROC: 4A02XFZ Measurement of Cardiac Rhythm, External Approach (ICD-10-PCS; 2024-02-21)
DX: L03.113 Cellulitis of right upper limb (principal); I10 Essential (primary) hypertension; B96.89 Other specified bacterial agents as the cause of diseases classified elsewhere; S51.821A Laceration with foreign body of right forearm, initial encounter; W01.198A Fall on same level from slipping, tripping and stumbling with subsequent striking against other object, initial encounter; Y93.01 Activity, walking, marching and hiking; E78.00 Pure hypercholesterolemia, unspecified; D72.829 Elevated white blood cell count, unspecified; E83.119 Hemochromatosis, unspecified; F51.01 Primary insomnia; R73.9 Hyperglycemia, unspecified; M54.50 Low back pain, unspecified; Z79.2 Long term (current) use of antibiotics; Z79.82 Long term (current) use of aspirin; Z79.899 Other long term (current) drug therapy; Z91.81 History of falling
CPT/HCPCS: 73201; 80048; 83605; 85025; 85027; 87040; 87070; 87077; 87186; 87205; 90471; 90715; 93005; 96365; 96367; 99285; Q9967

== ENCOUNTER → 2024-05-27 11:13 | Outpatient (REF) | payer OTHER, SELFPAY | LOC: HWRCS 11:13 | PROVIDERS: ATTENDING PHYSICIAN Internal Medicine Cardiovascular Disease; FAMILY PHYSICIAN Family Medicine | DX: I77.810 Thoracic aortic ectasia (principal); I10 Essential (primary) hypertension | CPT/HCPCS: 93306 ==

== ENCOUNTER 2025-01-19 06:28 | Day surgery (SDC) | payer OTHER, SELFPAY | END 2025-01-19 14:47 | disposition home or self-care (01) | LOC: GI 06:28 | PROVIDERS: ATTENDING PHYSICIAN Internal Medicine | DX: Z12.11 Encounter for screening for malignant neoplasm of colon (principal); K64.8 Other hemorrhoids; K58.9 Irritable bowel syndrome, unspecified; K57.30 Diverticulosis of large intestine without perforation or abscess without bleeding; R10.84 Generalized abdominal pain; K31.89 Other diseases of stomach and duodenum; Q39.9 Congenital malformation of esophagus, unspecified; K22.89 Other specified disease of esophagus; K25.9 Gastric ulcer, unspecified as acute or chronic, without hemorrhage or perforation; D12.8 Benign neoplasm of rectum; D12.5 Benign neoplasm of sigmoid colon; K63.5 Polyp of colon; K62.1 Rectal polyp; K29.50 Unspecified chronic gastritis without bleeding; K20.80 Other esophagitis without bleeding; Z13.810 Encounter for screening for upper gastrointestinal disorder | CPT/HCPCS: 45385; 45380; 43239; 88305; 88342 ==

== ENCOUNTER → 2025-03-04 14:31 | Outpatient (REF) | payer OTHER, SELFPAY | LOC: MRI 14:31 | PROVIDERS: ATTENDING PHYSICIAN Internal Medicine; FAMILY PHYSICIAN Family Medicine | DX: E83.118 Other hemochromatosis (principal); R74.8 Abnormal levels of other serum enzymes | CPT/HCPCS: 76391 ==